=== PATIENT | female | born 1995 | race Two or more races ===

== ENCOUNTER 2024-01-21 16:06 | Emergency (ER) | payer MEDICAID ==
[~2024-01-21] VITALS: Ht 165.1 cm; Wt 105.0 kg
[2024-01-21 16:07] VITALS: BP 176/86; PULSE 69; RESP 20; TEMP 98.3; O2SAT 99
[2024-01-21] MEDS ORDERED: PENI500T MT (16:12)
[2024-01-21] MEDS ORDERED: IBUP-2029 MT (16:12)
== END 2024-01-21 16:20 | disposition home or self-care (01) ==
LOC: ER 16:06
DX: K08.89 Other specified disorders of teeth and supporting structures (principal); Z68.38 Body mass index [BMI] 38.0-38.9, adult
CPT/HCPCS: 99283